=== PATIENT | female | born 1950 | race African-American/Black ===

== ENCOUNTER → 2017-09-29 | Outpatient (CLI) | payer BC, MEDICARE ==
[2016-04-30 20:05] VITALS: BP 103/62
[~2017-09-29] MED LIST: ASPI81TA44 PO; DORZ10DR27 OP; LISI2.5T PO; METO50TA29 PO; POTA20TA4 PO; TRAV5DRO OU; ZOLP10TA PO; ZOLP5TAB PO
--- NOTE | 2017-09-29 16:22 | RAD ---
Examination: Ultrasound kidneys History: History of left flank pain for one week Comparison: None available Findings: The right kidney measures 10.7 x 5.3 x 4.5 cm. The left kidney measures 10.5 x 5.8 x4.8 cm. Bilateral ureteral jets are visualized in the urinary bladder. Urinary bladder is mildly distended. Impression: Unremarkable visualized exam.
== END | disposition home or self-care (01) ==
LOC: US 14:43
PROVIDERS: ATTEND Family Medicine
DX: R94.4 Abnormal results of kidney function studies (principal); N32.89 Other specified disorders of bladder
CPT/HCPCS: 76770

== ENCOUNTER 2021-05-23 11:55 | Observation (INO) | payer BC, MEDICARE ==
[~2021-05-23] VITALS: Ht 157.5 cm; Wt 89.5 kg
[~2021-05-23 11:55] MED LIST changes: -ASPI81TA44 PO; +ASPI81TA59 PO; -LISI2.5T PO; +LISI2.5T12 PO; +POTA-121 PO; -POTA20TA4 PO
--- NOTE | 2021-05-23 12:25 | PHYS DOC ---
Past History Past Medical History: Cancer, CHF, Diabetes, Glaucoma, High Cholesterol, Heart Disease, Other Additional Past Medical Histor: cardiomyopathy,colorectal ca Past Surgical History: Other Additional Past Surgical Histo: pacer/drfib, colostomy bag andremoval Alcohol Use: None Drug Use: None General Adult EDM: Chief Complaint: AICD FIRED OR SHOCKED HPI: HPI: 71-year-old female presents after her AICD went off 3 times. Patient was having a verbal argument with her brother on the phone when she had the first shock. It went off 2 more times over the next couple of minutes. She has not had a shock since that time. This was about 30 minutes prior to arrival. The patient has never had her AICD go off before. She sees a manager audit at regularly. Her pacer with defibrillator was installed in 2017. She is unsure if she is paced full-time. She denies fever or chills. She states that she was feeling completely normal prior to this episode. Review of Systems: Review of Systems: Constitutional: Denies fever or chills Eyes: Denies change in visual acuity HENT: Denies nasal congestion or sore throat Respiratory: Denies cough or shortness of breath Cardiovascular: AICD fired GI: Denies abdominal pain, nausea, vomiting, bloody stools or diarrhea : Denies dysuria Musculoskeletal: Denies back pain or joint pain Integument: Denies rash Neurologic: Denies headache, focal weakness or sensory changes Endocrine: Denies polyuria or polydipsia Lymphatic: Denies swollen glands Psychiatric: Denies depression or anxiety Allergies: Allergies: Allergies Coded Allergies Type Severity Reaction Last Updated Verified morphine Allergy Intermediate 05/23/21 Yes Physical Exam: PE: Constitutional: Well developed, well nourished, obese, no acute distress, non- toxic appearance. [] HENT: Normocephalic, atraumatic, bilateral external ears normal, oropharynx moist, no oral exudates, nose normal. [] Eyes: PERRLA, EOMI, conjunctiva normal, no discharge. [] Neck: Normal range of motion, no tenderness, supple, no stridor. [] Cardiovascular: Heart rate 108, paced rhythm, no murmur [] Lungs & Thorax: Bilateral breath sounds clear to auscultation [] Abdomen: Bowel sounds normal, soft, no tenderness, no masses, no pulsatile masses. [] Skin: Warm, dry, no erythema, no rash. [] Back: No tenderness, no CVA tenderness. [] Extremities: No tenderness, no cyanosis, no clubbing, ROM intact, no edema. [] Neurologic: Alert and oriented X 3, normal motor function, normal sensory function, no focal deficits noted. [] Psychologic: Affect normal, judgement normal, mood normal. [] Current Patient Data: Vital Signs: Vital Signs Date Time Temp Pulse Resp B/P (MAP) Pulse Ox O2 Delivery O2 Flow Rate FiO2 05/23/21 12:05 98.6 103 22 142/91 (108) 100 Room Air EKG: EKG: Paced rhythm, rate 108, no significant ST elevation or depression. [] Radiology/Procedures: Radiology/Procedures: [] Impressions: Study: XR CHEST 1V Indication: Chest pain. Comparison: 04/30/2016 Findings: Left chest wall multilead pacer/AICD. Unchanged configuration of the cardiomediastinal silhouette and melania. Mildly increased basilar lung markings favored in part from mild atelectasis. Linear density at the left lower lung is unchanged. Redemonstrated blunting of left costophrenic angle. No lobar consolidation or pneumothorax. Advanced arthrosis of both glenohumeral joints. Impression: No acute radiographic abnormality of the chest. Unchanged blunting of the left costophrenic angle from a 2016 comparison is favored pleural thickening/epiphrenic fat as opposed to a small pleural effusion. Electronically signed by: MADHU VIVAR MD (05/23/2021 2:19 PM) [facility] DICTATED AND SIGNED BY: MADHU VIVAR MD DATE: 05/23/21 1417 CC: TERESO EDWARDS DO; NATAN BROWN MD ~MTH0 0 Heart Score: C/O Chest Pain: No Risk Factors: Risk Factors: DM, Current or recent (<one month) smoker, HTN, HLP, family history of CAD, obesity. Risk Scores: Score 0 - 3: 2.5% MACE over next 6 weeks - Discharge Home Score 4 - 6: 20.3% MACE over next 6 weeks - Admit for Clinical Observation Score 7 - 10: 72.7% MACE over next 6 weeks - Early Invasive Strategies Course & Med Decision Making: Course & Med Decision Making Pertinent Labs and Imaging studies reviewed. (See chart for details) Patient's labs are unremarkable. Her chest x-ray is negative for acute findings. We interrogated the patient's AICD pacemaker and she seems to have had several episodes of SVT. This would be consistent with how things look on the monitor at this time. I have given her 20 of Cardizem and her heart rate is improved 85. I consulted cardiology and spoke with the nurse practitioner, Estelita and she is recommended 50 mg of metoprolol and overnight admission for observation and management. I spoke with Dr. Brown and he has accepted the patient for admission. I also spoke to the nurse for the patient's manager audit, Dr. Jean, and she has agreed with the plan of action. We can consult them if needed. [] Dragon Disclaimer: Dragon Disclaimer: This electronic medical record was generated, in whole or in part, using a voice recognition dictation system. Departure Departure: Impression: Primary Impression: SVT (supraventricular tachycardia) Additional Impression: AICD discharge Disposition: ADMITTED INPATIENT Admitting Physician: Natan Brown Condition: STABLE Referrals: NATAN BROWN MD (PCP) TERESO EDWARDS DO May 23, 2021 12:25
--- NOTE | 2021-05-23 12:30 | EKG ---
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
--- NOTE | 2021-05-23 13:34 | EKG ---
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
[2021-05-23] MEDS ORDERED: IV NORMAL SALINE 1,000ML 1,000 ML IV ONE (13:45)
[2021-05-23 14:10] LABS: BASO % 0 % (0-3); EOS % 0 % (0-3); HEMATOCRIT 39.4 % (36.0-47.0); HEMOGLOBIN 13.2 g/dL (12.0-15.5); LYMPH # 1.9 x10^3/uL (1.0-4.8); LYMPH % 18 % (24-48); MEAN CORPUSCULAR HEMOGLOBIN 33 pg (25-35); MEAN CORPUSCULAR HGB CONC 33 g/dL (31-37); MEAN CORPUSCULAR VOLUME 100 fL (79-100); MONO # 0.8 x10^3/uL (0.0-1.1); MONO % 8 % (0-9); NEUT # 7.8 x10^3uL (1.8-7.7); NEUT % 74 % (31-73); PLATELET COUNT 268 x10^3/uL (140-400); RED BLOOD COUNT 3.96 x10^6/uL (3.50-5.40); RED CELL DISTRIBUTION WIDTH 13.5 % (11.5-14.5); WHITE BLOOD COUNT 10.6 x10^3/uL (4.0-11.0)
[2021-05-23 14:21] LABS: CALCIUM 9.3 mg/dL (8.5-10.1); CREATININE 0.9 mg/dL (0.6-1.0); GFR 74.7; POTASSIUM 3.7 mmol/L (3.5-5.1)
--- NOTE | 2021-05-23 14:22 | RAD ---
Study: XR CHEST 1V Indication: Chest pain. Comparison: 04/30/2016 Findings: Left chest wall multilead pacer/AICD. Unchanged configuration of the cardiomediastinal silhouette and melania. Mildly increased basilar lung m arkings favored in part from mild atelectasis. Linear density at the left lower lung is unchanged. Re demonstrated blunting of left costophrenic angle. No lobar consolidation or pneumothorax. Advanced arthrosis of both glenohumeral joints. Impression: No acute radiographic abnormality of the chest. Unchanged blunting of the left costophrenic angle fro m a 2016 comparison is favored pleural thickening/epiphrenic fat as opposed to a small pleural effusi on. Electronically signed by: MADHU VIVAR MD (05/23/2021 2:19 PM) [facility]
[2021-05-23 14:27] LABS: ALBUMIN 3.5 g/dL (3.4-5.0); ALBUMIN/GLOBULIN RATIO 0.9 (1.0-1.7); TOTAL BILIRUBIN 0.3 mg/dL (0.2-1.0); TOTAL PROTEIN 7.2 g/dL (6.4-8.2)
[2021-05-23] MEDS ORDERED: dilTIAZem 25 MG/5 ML VIAL IVP ONE (15:15)
[2021-05-23] MEDS ORDERED: SPIR50TA4 PO (15:33)
[2021-05-23] MEDS ORDERED: PROM5SYR2 PO (15:33)
[2021-05-23] MEDS ORDERED: METH4TAB6 PO (15:33)
[2021-05-23] MEDS ORDERED: DOXY20TA5 PO (15:33)
[2021-05-23] MEDS ORDERED: SACU1TAB4 PO (15:33)
[2021-05-23 16:14] LABS: BACTERIA,URINE 0 /HPF (0-FEW); BILIRUBIN,URINE NEG (NEG); CLARITY,URINE CLEAR; COLOR,URINE YELLOW; GLUCOSE,URINE NEG (NEG); HYALINE CASTS, URINE OCC /HPF; NITRITE,URINE NEG (NEG); RBC,URINE 0 /HPF (0-2); SQUAMOUS EPITHELIAL CELL,UR OCC /LPF; UROBILINOGEN,URINE 0.2 mg/dL (0.2 mg/dL); WBC,URINE RARE /HPF (0-4); YEAST,URINE PRESENT /HPF
[2021-05-23] MEDS ORDERED: METOPROLOL SUCC 24HR ER 25 MG TAB.ER.24H. PO ONE (16:15)
[2021-05-23] MEDS ORDERED: METO-239 PO (16:37)
[2021-05-23 17:43] VITALS: BP 118/76
--- NOTE | 2021-05-23 19:17 | NUR ---
admission note pt admitted to room 113 at 1750 via ems.
[2021-05-23] MEDS ORDERED: DOXY100C3 PO (21:02)
[2021-05-23] MEDS ORDERED: PROMETH/CODEINE 6.25/10MG 5 ML SYRUP. PO PRN (21:15)
[2021-05-23] MEDS ORDERED: ZOLPIDEM 5 MG TABLET. PO PRN (21:15)
[2021-05-23] MEDS: DOXYCYCLINE 100 MG PO SCH (21:34)
[2021-05-23 23:20] VITALS: BP 105/61
[2021-05-24 05:35] VITALS: BP 94/61
[2021-05-24] MEDS ORDERED: DORZ10DR27 EACHEYE (07:45)
[2021-05-24] MEDS ORDERED: BRIM5DRO3 EACHEYE (07:45)
[2021-05-24] MEDS ORDERED: TRAV5DRO EACHEYE (07:46)
[2021-05-24 08:40] VITALS: BP 117/73
[2021-05-24] MEDS: DOXYCYCLINE 100 MG PO SCH (08:44)
[2021-05-24] MEDS ORDERED: methylPREDNISolone 4 MG TABLET. PO SCH (09:00)
[2021-05-24] MEDS ORDERED: SPIRONOLACTONE 25 MG TABLET PO SCH (09:00)
[2021-05-24] MEDS ORDERED: BRIMONIDINE 0.2% OPHTH SOLUTION 5ML BOTTLE. OU SCH (09:00)
[2021-05-24] MEDS ORDERED: METOPROLOL SUCC 24HR ER 25 MG TAB.ER.24H. PO SCH (09:00)
[2021-05-24] MEDS ORDERED: DORZOLAMIDE/TIMOLOL 2%/0.5% OPHTH SOLUTION 10ML BOTTLE. OU SCH (09:00)
[2021-05-24 11:22] VITALS: BP 152/95
--- NOTE | 2021-05-24 11:56 | NUR ---
PATIENT IS DISCHARGED HOME, DISCHARGED INSTRUCTION REVIEWED, PATIENT VERBALIZED UNDERSTANDING. PATIENT LEFT ROOM 113 VIA AMBULATION. PATIENT IS TAKEN HOME BY FRIEND VIA PERSONAL TRANSPORTATION.
--- NOTE | 2021-05-24 14:22 | PDOC2 ---
CONSULT DOS: DATE: 05/24/21 TIME: 14:17 Reason for Consult: AICD discharge. Referring Physician: Dr. Greene Chief Complaint AICD discharge Source: Chart review, Patient Problem List Problems Medical Problems: (1) AICD discharge Status: Acute (2) SVT (supraventricular tachycardia) Status: Acute History of Present Illness The patient is a 71-year-old female who was feeling in her usual state of health last evening. Then she reportedly got into an argument with a family member and during this argument she had her AICD discharge 2 or 3 times. She was brought to the emergency room. Chest x-ray showed an AICD in place but no acute cardiopulmonary changes. Initial potassium of 3.7. Troponin has been 0.042 and 0.124. EKG showed a sinus rhythm with V paced beats. The patient reportedly had her device interrogated and showed episodes of PSVT but no ventricular t achycardia. This morning she is comfortable. She denies chest pain, shortness of breath, dizziness or lightheadedness. She has had no significant arrhythmias overnight. Cardiovascular: CAD, CHF, HTN, hyperipidemia Heme/Onc: Cancer Endocrine: Diabetes Past Surgical History: Other (AICD, colostomy) Family History: Hypertension Smoke: No ALCOHOL: none Current Medications Current Medications Sodium Chloride 1,000 ml @ 1,000 mls/hr 1X ONCE IV Last administered on 05/23/21at 13:51; Start 05/23/21 at 13:45; Stop 05/23/21 at 14:44; Status DC Diltiazem HCl (Cardizem Iv Push) 20 mg 1X ONCE IVP Last administered on 05/23/21at 15:19; Start 05/23/21 at 15:15; Stop 05/23/21 at 15:16; Status DC Metoprolol Succinate (Toprol Xl) 50 mg 1X ONCE PO Last administered on 05/23/21at 16:36; Start 05/23/21 at 16:15; Stop 05/23/21 at 16:18; Status DC Metoprolol Succinate (Toprol Xl) 25 mg DAILY PO Last administered on 05/24/21at 08:44; Start 05/24/21 at 09:00; Stop 05/24/21 at 11:58; Status DC Non-Formulary Medication (Doxycycline Hyclate ) 100 mg BID PO Last administered on 05/24/21at 08:44; Start 05/23/21 at 21:00; Stop 05/24/21 at 11:58; Status DC Methylprednisolone (Medrol) 4 mg DAILY PO Last administered on 05/24/21at 08:44; Start 05/24/21 at 09:00; Stop 05/24/21 at 11:58; Status DC Promethazine HCl/ Codeine (Phenergan With Codeine Oral Syrup) 5 ml PRN Q4HRS PRN PO COUGH; Start 05/23/21 at 21:15; Stop 05/24/21 at 11:58; Status DC Non-Formulary Medication (Sacubitril/ Valsartan (Entresto 97 mg-103 mg Tablet)) 1 each BID PO Last administered on 05/24/21at 08:45; Start 05/23/21 at 21:00; Stop 05/24/21 at 11:58; Status DC Spironolactone (Aldactone) 50 mg DAILY PO Last administered on 05/24/21at 08:44; Start 05/24/21 at 09:00; Stop 05/24/21 at 11:58; Status DC Zolpidem Tartrate (Ambien) 5 mg PRN QHS PRN PO INSOMNIA, MAY REPEAT IN 1HR Last administered on 05/23/21at 21:34; Start 05/23/21 at 21:15; Stop 05/24/21 at 11:58; Status DC Dorzolamide/ Timolol (Cosopt) 1 drop BID OU Last administered on 05/24/21at 10:15; Start 05/24/21 at 09:00; Stop 05/24/21 at 11:58; Status DC Brimonidine Tartrate (Alphagan) 1 drop BID OU Last administered on 05/24/21at 10:15; Start 05/24/21 at 09:00; Stop 05/24/21 at 11:58; Status DC Latanoprost (Xalatan) 1 drop QHS OU ; Start 05/24/21 at 21:00; Stop 05/24/21 at 11:58; Status DC Non-Formulary Medication (Doxycycline Hyclate ) 1 cap BID PO ; Start 05/24/21 at 21:00; Stop 05/24/21 at 11:58; Status DC Active Scripts Active Reported Travatan Z (Travoprost) 5 Ml Drops 1 Drop EACHEYE QHS Alphagan P (Brimonidine Tartrate) 5 Ml Drops 1 Drop EACHEYE BID Dorzolamide-Timolol Eye Drops (Dorzolamide Hcl/Timolol Maleat) 10 Ml Drops 1 Drop EACHEYE BID Doxycycline Hyclate 100 Mg Capsule 1 Cap PO BID Metoprolol Succinate ( Xl ) (Metoprolol Succinate) 25 Mg Tab.er.24h 1 Tab PO DAILY PRN Prometh-Codein 6.25-10 mg/5 ml (Promethazine HCl/Codeine) 5 Ml Syrup 5 Ml PO PRN Q4-6HRS PRN MDD 30 Milliliter(s) Spironolactone 50 Mg Tablet 1 Tab PO DAILY Methylprednisolone 4 Mg Tab.ds.pk 4 Mg PO DAILY Entresto 97 mg-103 mg Tablet (Sacubitril/Valsartan) 1 Each Tablet 1 Each PO BID Allergies: Coded Allergies: morphine (Verified Allergy, Intermediate, 05/23/21) Halluinations Cardiovascular: yes: Other (AICD discharge) General: No acute distress HEENT: Atraumatic Lungs: Clear to auscultation Heart: Regular rate Abdomen: Normal bowel sounds VITALS Vital Signs Date Time Temp Pulse Resp B/P (MAP) Pulse Ox O2 Delivery O2 Flow Rate FiO2 05/24/21 11:22 97.5 79 18 152/95 (114) 05/24/21 08:22 Room Air 05/24/21 05:35 100 Labs Laboratory Tests Test 05/23/21 13:43 05/23/21 15:37 05/23/21 16:40 05/23/21 19:34 White Blood Count 10.6 x10^3/uL (4.0-11.0) Red Blood Count 3.96 x10^6/uL (3.50-5.40) Hemoglobin 13.2 g/dL (12.0-15.5) Hematocrit 39.4 % (36.0-47.0) Mean Corpuscular Volume 100 fL (79-100) Mean Corpuscular Hemoglobin 33 pg (25-35) Mean Corpuscular Hemoglobin Concent 33 g/dL (31-37) Red Cell Distribution Width 13.5 % (11.5-14.5) Platelet Count 268 x10^3/uL (140-400) Neutrophils (%) (Auto) 74 % (31-73) Lymphocytes (%) (Auto) 18 % (24-48) Monocytes (%) (Auto) 8 % (0-9) Eosinophils (%) (Auto) 0 % (0-3) Basophils (%) (Auto) 0 % (0-3) Neutrophils # (Auto) 7.8 x10^3uL (1.8-7.7) Lymphocytes # (Auto) 1.9 x10^3/uL (1.0-4.8) Monocytes # (Auto) 0.8 x10^3/uL (0.0-1.1) Eosinophils # (Auto) 0.0 x10^3/uL (0.0-0.7) Basophils # (Auto) 0.0 x10^3/uL (0.0-0.2) Sodium Level 142 mmol/L (136-145) Potassium Level 3.7 mmol/L (3.5-5.1) Chloride Level 106 mmol/L (98-107) Carbon Dioxide Level 27 mmol/L (21-32) Anion Gap 9 (6-14) Blood Urea Nitrogen 19 mg/dL (7-20) Creatinine 0.9 mg/dL (0.6-1.0) Estimated GFR (Cockcroft-Gault) 74.7 BUN/Creatinine Ratio 21 (6-20) Glucose Level 83 mg/dL (70-99) Calcium Level 9.3 mg/dL (8.5-10.1) Total Bilirubin 0.3 mg/dL (0.2-1.0) Aspartate Amino Transf (AST/SGOT) 19 U/L (15-37) Alanine Aminotransferase (ALT/SGPT) 27 U/L (14-59) Alkaline Phosphatase 73 U/L (46-116) Troponin I Quantitative 0.042 ng/mL (0-0.055) 0.124 ng/mL (0-0.055) Total Protein 7.2 g/dL (6.4-8.2) Albumin 3.5 g/dL (3.4-5.0) Albumin/Globulin Ratio 0.9 (1.0-1.7) Urine Collection Type Unknown Urine Color Yellow Urine Clarity Clear Urine pH 5.5 Urine Specific [place] 1.025 Urine Protein Neg (NEG-TRACE) Urine Glucose (UA) Neg mg/dL (NEG) Urine Ketones (Stick) Neg mg/dL (NEG) Urine Blood Neg (NEG) Urine Nitrite Neg (NEG) Urine Bilirubin Neg (NEG) Urine Urobilinogen Dipstick 0.2 mg/dL (0.2 mg/dL) Urine Leukocyte Esterase Neg (NEG) Urine RBC 0 /HPF (0-2) Urine WBC Rare /HPF (0-4) Urine Squamous Epithelial Cells Occ /LPF Urine Bacteria 0 /HPF (0-FEW) Urine Hyaline Casts Occ /HPF Urine Yeast Present /HPF Coronavirus (COVID-19)(PCR) Not detected (NOT DETECTD) SARS-CoV-2 Antigen (Rapid) Negative (NEGATIVE) Images Checks x-ray with no acute cardiopulmonary findings Assessment/Plan 1. AICD. Several discharges as noted above during an argument. Interrogation reportedly shows PSVT but no VT. Patient rhythm has been stable overnight. Her potassium is 3.7. She has a mild troponin bump at 0.124 consistent with her discharges. Apparently the ER also contacted her physicians. At this time we will continue present medications and increase her activities. Probably home later today with follow-up at . 2. Cardio myopathy. No acute heart failure or infarct. No infiltrates on chest x-ray. Continue present treatment with follow-up at . 3. History of coronary artery disease. No chest pain other than her discharge. Continue baseline medications. 4. Hyperlipidemia. Continue statin. 5. Diabetes mellitus. Continue present treatments. MARITZA WALLS MD May 24, 2021 14:22
--- NOTE | 2021-05-24 19:14 | HP ---
HISTORY OF PRESENT ILLNESS: A 71-year-old -[place] female with history of severe cardiomyopathy and the like. Apparently, had her AICD went off 3 times and was unknown reason. The patient in turn had told her to go to the Emergency Room after the third AICD went off. The patient came in and had a couple of more times when she was shocked with her automatic defibrillator. The patient was admitted for further evaluation and treatment. The patient denied chest pain, shortness of breath. PAST MEDICAL HISTORY: Significant for cataract, left eye glaucoma, congestive heart failure, cardiomyopathy, internal defibrillator, colorectal cancer, bowel surgery, colostomy with reversal, obesity, arthritis. FAMILY HISTORY: Positive for cancer, father and mother. ALLERGIES: MORPHINE. SOCIAL HISTORY: The patient denies smoking, alcohol or drug use. Is a full code. REVIEW OF SYSTEMS: Denies any headaches, visual change, blurred vision, double vision. Denies chest pain, shortness of breath. Denies any abdominal pain. Denies any melena, hematochezia, hematemesis, and neurologically stable. PHYSICAL EXAMINATION: GENERAL: This is a pleasant -[place] female in no apparent obvious distress at the present time. VITAL SIGNS: Blood pressure 110/70, respiratory 22, pulse 85, afebrile, oxygen saturation 99%. HEENT: The patient's head was atraumatic, normocephalic. Eyes: PERRLA without jaundice. The mouth and throat were normal. NECK: Supple. LUNGS: Basically clear to auscultation. CARDIOVASCULAR: Regular sinus rhythm, S1, S2, without murmur, rub, thrill, or extra heart sounds. ABDOMEN: The patient's abdomen was soft, diffuse tenderness. No rebounding or guarding. Positive bowel sounds, no hepatosplenomegaly was noted. EXTREMITIES: No clubbing, cyanosis. Trace edema noted in the extremities, but otherwise basically unremarkable for this very nice individual. ASSESSMENT AND PLAN: In any case, paroxysmal supraventricular tachycardia, but no ventricular tachycardia, approximately 5 AICD shocks, mild troponin element, cardiomyopathy, no heart failure, history of coronary artery disease, hyperlipidemia, type 2 diabetes, under fairly good control. We will continue to monitor the patient. She was seen by Dr. Kathleen, possibly discharged home. Labs were all basically normal except for her slight elevation of the troponin. Otherwise, sodium and potassium 142 and 3.7, BUN and creatinine 19 and 0.9 and blood sugar was only 83. She was SARS negative. The patient continued to be monitored as an outpatient and make further evaluation on her as indicated. REJI DR: Juan TID: [id number]
[2021-05-24] MEDS ORDERED: NON FORMULARY ITEM (Doxycycline Hyclate 1 CAP) PO SCH (21:00)
[2021-05-24] MEDS ORDERED: LATANOPROST 0.005% OPHTH SOLUTION 2.5ML BOTTLE. OU SCH (21:00)
== END 2021-05-24 11:55 | disposition home or self-care (01) ==
LOC: ER 11:55 → INTOOBSV 16:34 → 1 SOUTH 16:34
PROVIDERS: ADMIT Family Medicine; ATTEND Family Medicine
DX: I47.1 Supraventricular tachycardia (principal); Z20.822 Contact with and (suspected) exposure to COVID-19; R77.8 Other specified abnormalities of plasma proteins; H26.9 Unspecified cataract; H40.9 Unspecified glaucoma; I11.0 Hypertensive heart disease with heart failure; I50.9 Heart failure, unspecified; I25.10 Atherosclerotic heart disease of native coronary artery without angina pectoris; E11.9 Type 2 diabetes mellitus without complications; E78.00 Pure hypercholesterolemia, unspecified; M19.90 Unspecified osteoarthritis, unspecified site; E66.9 Obesity, unspecified; E78.5 Hyperlipidemia, unspecified; Z85.048 Personal history of other malignant neoplasm of rectum, rectosigmoid junction, and anus; Z93.3 Colostomy status; Z95.810 Presence of automatic (implantable) cardiac defibrillator; Z68.36 Body mass index [BMI] 36.0-36.9, adult
CPT/HCPCS: 36415; 71045; 80053; 81001; 84484; 85025; 87426; 93005; 96361; 96374; 99285; G0378; J3490; J7030; J7509; U0003; G0379